=== PATIENT | female | born 1985 | race African-American/Black ===

== ENCOUNTER 2019-06-15 08:25 | Emergency (ER) | payer SELFPAY ==
--- NOTE | 2019-06-15 08:47 | ER Document Report ---
ED General - General Chief Complaint: Flu Symptoms Stated Complaint: SORE THROAT Time Seen by Provider: 06/15/19 08:46 Notes: CHIEF COMPLAINT: Multiple complaints HPI: 34-year-old female presenting to the emergency department with multiple com plaints. Patient states over the last 2 weeks she has had multiple episodes of vomiting and diarrhea daily. Denies abdominal pain. Denies fever. States that when she eats she does become more nauseated. Patient states over the last 2 days she has had increasing sore throat and painful swallowing. Patient also states that she would like to have her thyroid checked because she has noticed swelling across the lower neck and has been told she had thyroid issues previously that were going to be managed and watched by her PCP but they were not ROS: See HPI - all other systems were reviewed and are otherwise negative Constitutional: no fever Eyes: no drainage, no blurred vision ENT: no runny nose, + sore throat Cardiovascular: no chest pain Resp: no SOB, no cough GI: + vomiting, + diarrhea, no abdominal pain : no dysuria Integumentary: no rash Allergy: no hives Musculoskeletal: no extremity pain or swelling Neurological: no numbness/tingling, no weakness MEDICATIONS: I agree with the patient medications as charted by the RN. ALLERGIES: I agree with the allergies as charted by the RN. PAST MEDICAL HISTORY/PAST SURGICAL HISTORY: Reviewed and agree as charted by RN. SOCIAL HISTORY: Reviewed and agree as charted by RN. FAMILY HISTORY: No significant familial comorbid conditions directly related to patient complaint EXAM: Reviewed vital signs as charted by RN. CONSTITUTIONAL: Alert and oriented and responds appropriately to questions. Well-appearing; well-nourished, no acute distress HEAD: Normocephalic; atraumatic EYES: PERRL; Conjunctivae clear, sclerae non-icteric ENT: normal nose; no rhinorrhea; moist mucous membranes; mild pharyngeal erythema is noted, no uvula edema or deviation, no tonsillar hypertrophy, phonation normal NECK: Supple without meningismus; non-tender; no cervical lymphadenopathy, no masses, mild goiter is noted CARD: RRR; no murmurs, no clicks, no rubs, no gallops; symmetric distal pulses RESP: Normal chest excursion without splinting or tachypnea; breath sounds clear and equal bilaterally; no wheezes, no rhonchi, no rales, pulse oximetry ABD/GI: Normal bowel sounds; non-distended; soft, non-tender, no rebound, no guarding; no palpable organomegaly or masses. BACK: The back appears normal and is non-tender to palpation, there is no CVA tenderness EXT: Normal ROM in all joints; non-tender to palpation; no cyanosis, no effusion s, no edema SKIN: Normal color for age and race; warm; dry; good turgor; no acute lesions noted NEURO: Moves all extremities equally; Motor and sensory function intact PSYCH: The patient's mood and manner are appropriate. Grooming and personal hygiene are appropriate. MDM: 34-year-old female presenting for multiple complaints. Patient has had vomiting and diarrheal episodes for 2 weeks. Has no abdominal pain on exam. Will check basic screening labs. Patient also reporting sore throat over the last 2 days. Will check rapid strep. She does appear to have a mild goiter does report thyroid issues in the past is not sure whether she was specifically high or low on her testing with her PCP. Will check a TSH TRAVEL OUTSIDE OF THE [place] IN LAST 30 DAYS: No - Related Data Allergies/Adverse Reactions: No Known Allergies Allergy (Unverified 02/20/15 10:41) Past Medical History - Social History Smoking Status: Never Smoker Frequency of alcohol use: None Drug Abuse: None Family History: Reviewed & Not Pertinent Patient has suicidal ideation: No Patient has homicidal ideation: No - Immunizations Hx Diphtheria, Pertussis, Tetanus Vaccination: Yes Physical Exam - Vital signs Vitals: Temp Pulse Resp BP Pulse Ox 98.8 F 83 20 145/88 H 100 06/15/19 08:30 06/15/19 08:30 06/15/19 08:30 06/15/19 08:30 06/15/19 08:30 Course - Re-evaluation Re-evalutation: 06/15/19 11:24 Patient's TSH is normal. Patient is positive for influenza A. Also positive for UTI. She is outside the window for treatment with Tamiflu. Symptoms began 3 days ago. Will treat with Keflex, Zofran, PCP follow-up - Vital Signs Vital signs: Temp Pulse Resp BP Pulse Ox 98.8 F 83 20 145/88 H 100 06/15/19 08:30 06/15/19 08:30 06/15/19 08:30 06/15/19 08:30 06/15/19 08:30 - Laboratory Result Diagrams: 06/15/19 09:48 06/15/19 09:48 Laboratory results interpreted by me: 06/15/19 09:19 Urine Protein 30 H Urine Blood SMALL H Urine Nitrite POSITIVE H Urine Urobilinogen 4.0 H Ur Leukocyte Esterase LARGE H Discharge - Discharge Clinical Impression: Vomiting and diarrhea, Urinary tract infection in female, Influenza A Condition: Stable Disposition: HOME, SELF-CARE Instructions: Influenza ([facility]) [id number], Urinary Tract Infection ([facility]) Additional Instructions: Take Zofran for nausea, Keflex for the UTI. Hydrate well at home. Follow-up with primary care provider for reevaluation call for appointment. You were positive for both influenza A and urinary infection today. Your TSH for your thyroid was normal Prescriptions: Cephalexin Monohydrate [Keflex 500 mg Capsule] 500 mg PO Q6H 7 Days #28 capsule Ondansetron [Zofran Odt 4 mg Tablet] 1 - 2 tab PO Q4H PRN #15 tab.rapdis PRN Reason: For Nausea/Vomiting
[2019-06-15 09:42] LABS: APPEARANCE,URINE CLOUDY; BILIRUBIN,URINE NEGATIVE (NEGATIVE); COLOR,URINE YELLOW; GLUCOSE, URINE NEGATIVE (NEGATIVE); KETONES,URINE NEGATIVE (NEGATIVE); LEUKOCYTE ESTERASE,URINE LARGE (NEGATIVE); NITRITE,URINE POSITIVE (NEGATIVE); PROTEIN,URINE 30 mg/dL (NEGATIVE); URINE SPECIFIC GRAVITY 1.018
[2019-06-15 10:09] LABS: ABSOLUTE EOSINOPHILS # (AUTO) 0.1 10^3/uL (0.0-0.6); ABSOLUTE LYMPHOCYTES (AUTO) 1.3 10^3/uL (0.5-4.7); ABSOLUTE MONOCYTES (AUTO) 0.3 10^3/uL (0.1-1.4); ABSOLUTE NEUT (AUTO) 3.2 10^3/uL (1.7-8.2); BASOPHILS % (AUTO) 0.4 % (0-2); EOSINOPHILS % (AUTO) 2.9 % (0-6); HEMATOCRIT 39.2 % (36.0-47.0); HEMOGLOBIN 13.5 g/dL (12.0-15.5); LYMPHOCYTES % (AUTO) 26.1 % (13-45); MEAN CORPUSCULAR HEMOGLOBIN 29.3 pg (27.0-33.4); MEAN CORPUSCULAR HGB CONC 34.3 g/dL (32.0-36.0); MEAN CORPUSCULAR VOLUME 85 fl (80-97); MONOCYTES % (AUTO) 5.6 % (3-13); PLATELET COUNT 247 10^3/uL (150-450); TOTAL CELLS COUNTED % (AUTO) 100 %; WHITE BLOOD COUNT 4.9 10^3/uL (4.0-10.5)
[2019-06-15 10:31] LABS: ALBUMIN 4.1 g/dL (3.5-5.0); ALKALINE PHOSPHATASE 45 U/L (38-126); ANION GAP 8 (5-19); ASPARTATE AMINO TRANSFERASE 20 U/L (14-36); BILIRUBIN,TOTAL 0.5 mg/dL (0.2-1.3); BLOOD UREA NITROGEN 11 mg/dL (7-20); CALCIUM 8.9 mg/dL (8.4-10.2); CARBON DIOXIDE 28 mmol/L (22-30); CHLORIDE 105 mmol/L (98-107); GLUCOSE 81 mg/dL (75-110); POTASSIUM 3.8 mmol/L (3.6-5.0); TOTAL PROTEIN 7.2 g/dL (6.3-8.2)
[2019-06-15 10:33] LABS: A TYPE INFLUENZA AG POSITIVE (NEGATIVE); B INFLUENZA AG NEGATIVE (NEGATIVE)
[2019-06-15] MEDS ORDERED: ONDANSETRON 4 MG TAB.RAPDIS PO ONE (11:24)
[2019-06-15] MEDS ORDERED: CEPHALEXIN 500 MG CAPSULE PO ONE (11:24)
[2019-06-15 11:51] VITALS: BP 135/92
== END 2019-06-15 11:45 | disposition home or self-care (01) ==
LOC: ER 08:25
DX: N39.0 Urinary tract infection, site not specified (principal); J11.1 Influenza due to unidentified influenza virus with other respiratory manifestations; R11.10 Vomiting, unspecified; R19.7 Diarrhea, unspecified
CPT/HCPCS: 36415; 80053; 81001; 81025; 84443; 85025; 87070; 87804; 87880; 99283

== ENCOUNTER 2020-02-04 07:54 | Day surgery (SDC) | payer MEDICAID ==
[2020-02-04 09:11] LABS: INTERNATIONAL RATION (INR) 1.08; PROTHROMBIN TIME 14.2 SEC (11.4-15.4)
[2020-02-04 09:12] LABS: PARTIAL THROMBOPLASTIN TIME 27.8 SEC (23.5-35.8)
--- NOTE | 2020-02-04 10:57 | RADIOLOGY REPORT (SQ) ---
EXAM DESCRIPTION: LUMBAR PUNCTURE IMAGES COMPLETED DATE/TIME: 02/04/2020 10:35 am REASON FOR STUDY: BENIGN INTRACRANIAL HYPERTENSION COMPARISON: None. FLUOROSCOPY TIME: 0.6 minutes of fluoroscopy was used. 1 Images saved to PACS. TECHNIQUE: Fluoroscopic guided lumbar puncture with opening and closing pressures. LIMITATIONS: None. PROCEDURE: After written consent and assessment were obtained, the patient was brought into the fluo roscopy room and placed prone on the table. The patient's lower back was prepped in a sterile fashion and an entry site was selected under live fluoroscopic guidance. The entry site was anesthetized wit h 1% lidocaine. A 20 gauge needle was advanced through the skin and into the thecal sac at the level of L 2 -L 3 . An opening pressure of 41 units was obtained. After approximately 31 ml of CSF was drai kierra, a closing pressure of 18 units was obtained. The needle was removed and a sterile bandage was pl aced of the site. Specimens were sent to the lab for testing. A fluoroscopic spot image was saved to PACS confirming level access. FINDINGS: Clear CSF IMPRESSION: Lumbar puncture under fluoroscopy. No immediate complication. COMMENT: Patient medication list reviewed: Yes- Quality ID# [id number]:Eligible professional attests to doc umenting in the medical record they obtained, updated, or reviewed the patient's current medications. Quality ID 145: Final reports for procedures using fluoroscopy that document radiation exposure indic es, or exposure time and number of fluorographic images (if radiation exposure indices are not availa ble) TECHNICAL DOCUMENTATION: Job ID: [id number] 2010 [employer]- All Rights Reserved Reading location - IP/workstation name: [email or web address] [id number]
[2020-02-04] MEDS ORDERED: ACETAMINOPHEN 325 MG TABLET ONE (11:03)
[2020-02-04 11:12] LABS: GLUCOSE,CSF 52 mg/dL (40-70); PROTEIN,CSF 22 mg/dL (12-60)
[2020-02-04] MEDS ORDERED: ACETAMINOPHEN 325 MG TABLET PO ONE (11:15)
[2020-02-04] MEDS ORDERED: DEXTROSE 5%-1/2 NORMAL SALINE 500 ML IV PRN (11:22)
[2020-02-04 11:42] LABS: APPEARANCE ALL TUBES CLEAR; COLOR ALL TUBES COLORLESS; CSF TUBE NUMBER 3; VOLUME TUBE 1 7.5 CC; VOLUME TUBE 3 6.5 CC
[2020-02-04 11:53] LABS: RED BLOOD CELL,CSF 1 /uL (0-10)
[2020-02-04 11:55] LABS: WHITE BLOOD CELL,CSF 1 /uL (0-5)
[2020-02-04 14:51] VITALS: BP 131/87
[2020-02-08 12:37] LABS: ALBUMIN CSF 9 mg/dL (11-48); ALBUMIN SERUM 3.8 g/dL (3.8-4.8); IGG/ALBUMIN RATIO CSF 0.19 (0.00-0.25); IMMUNOGLOBULIN G CSF 1.7 mg/dL (0.0-8.6)
[2020-02-09 12:34] LABS: CSF/SERUM ALBUMIN INDEX 2 (0-8)
== END 2020-02-04 12:55 | disposition home or self-care (01) ==
LOC: RAD 07:54
PROVIDERS: ATTEND Nurse Practitioner Family
DX: G93.2 Benign intracranial hypertension (principal)
CPT/HCPCS: 36415; 87070; 87205; 85610; 85730; 89050; 82945; 84157; 81025; 82784; 62328; J3490